=== PATIENT | female | born 1965 | race Hispanic/Latino ===

== ENCOUNTER 2022-01-27 08:41 | Emergency (ER) | payer BC ==
[2022-01-27 10:02] LABS: Basophils % (Auto) 0.5 % (0.0-1.8); Eosinophils # (Auto) 0.3 K/mm3 (0.0-0.4); Eosinophils % (Auto) 3.7 % (0.0-4.3); Lymphocytes # (Auto) 2.9 K/mm3 (1.2-5.4); Lymphocytes % (Auto) 35.6 % (13.4-35.0); Mean Corpuscular HGB Conc 32 % (30-34); Mean Corpuscular Volume 88 fl (79-97); Monocytes # (Auto) 0.7 K/mm3 (0.0-0.8); Monocytes % (Auto) 8.2 % (0.0-7.3); Platelet Count 352 K/mm3 (140-440); Red Blood Count 4.56 M/mm3 (3.65-5.03); Red Cell Distribution Width 14.3 % (13.2-15.2)
[2022-01-27 10:10] LABS: Alanine Aminotransferase 30 units/L (7-56); Albumin 3.9 g/dL (3.9-5); BUN/Creatinine Ratio 24; Blood Urea Nitrogen 19 mg/dL (7-17); Calcium 9.6 mg/dL (8.4-10.2); Hemolysis Index 7
[2022-01-27] MEDS ORDERED: KETOROLAC 30 MG/1 ML INJ IV ONE (11:15)
--- NOTE | 2022-01-27 11:17 | Emergency Department Report ---
HPI - General Chief Complaint: Chest Pain Time Seen by Provider: 01/27/22 11:03 - HPI HPI: For the last 5 hours the patient has had a left anterior chest sharp pain radiating to her left back worse with movement of her left upper extremity and touch. Patient cannot recall hurting her left chest in any way. She is a school cdl team truck driver. The pain is moderate sharp radiating to the left upper back worse with movement. She has not taken any medicines for this. She denies nausea vomiting fever chills shortness of breath diaphoresis or any other associated symptoms. She has a history of a left bundle branch block and she has had her coronaries studied and she does not have coronary artery disease. ED Past Medical Hx - Past Medical History Previous Medical History?: Yes Hx Hypertension: Yes Hx Diabetes: Yes Hx Arthritis: Yes Hx Asthma: Yes Additional medical history: FIBROMYALGIA - Surgical History Hx Cholecystectomy: Yes Additional Surgical History: Multiple Left Ankle surgeries, Back surgery. TUMOR REMOVED FROM BACK - Social History Smoking Status: Unknown if ever smoked - Medications Home Medications: Home Medications Medication Instructions Recorded Confirmed Last Taken Type Brompheniramine/Pseudoephed/Dm 10 ml PO Q8H PRN #210 ml 08/22/15 Unknown Rx [Bromfed Dm Cough Syrup] diazePAM TAB [Valium] 2 mg PO BID PRN #8 tablet 08/22/15 Unknown Rx Ibuprofen [Motrin 800 MG tab] 800 mg PO Q8HR PRN #30 tablet 08/20/16 Unknown Rx Oxycodone HCl/Acetaminophen 1 each PO Q6HR PRN #20 tablet 08/20/16 Unknown Rx [Percocet 10/325 mg] ED Review of Systems ROS: Stated complaint: CHEST PAIN Other details as noted in HPI Comment: All other systems reviewed and negative Physical Exam - Physical Exam Vital Signs: Vital Signs 01/27/22 01/27/22 08:59 09:15 Temperature 97.7 F Pulse Rate 76 Respiratory 18 Rate Blood Pressure 96/69 [Right] O2 Sat by Pulse 96 97 Oximetry Physical Exam: Physical Exam: Constitutional: AAOX3. No acute distress. No diaphoresis. HENT: Normocephalic. Pupils equal and reactive. No throat edema or erythema. Neck: No neck rigidity or tenderness. Cardiovascular: Heart sounds: No murmur. Normal rate and regular rhythm. Pulses: Intact distal pulses. Lungs: No wheezing or rales. Chest wall: There is tenderness palpation diffusely over the left anterior chest there are no rashes. Touching her left anterior chest even softly reproduces her pain. Abdominal: No distension. No mass/pulsatile mass. No abdominal tenderness, guarding nor rebound. Musculoskeletal: Normal range of motion. No edema, No calf TTP. Skin: Warm and dry. Neurological: Alert and oriented to person, place, and time. Psychiatric: Mood and affect normal. Normal cognition and memory. Normal judgement. ED Course Vital Signs 01/27/22 01/27/22 08:59 09:15 Temperature 97.7 F Pulse Rate 76 Respiratory 18 Rate Blood Pressure 96/69 [Right] O2 Sat by Pulse 96 97 Oximetry - Reevaluation(s) Reevaluation #1: 01/27/22 12:27 The patient's troponin CBC chemistries and chest x-ray were all within normal limits. She feels better after the Toradol I gave her. I offered her admission for chest pain rule out but she declined she feels that this is likely her chest wall and I agree. She verbalized understanding that I cannot fully rule out myocardial infarction but she just does not think she has it and so that is why she declined admission. ED Medical Decision Making - Lab Data Result diagrams: 01/27/22 09:36 01/27/22 09:24 Critical care attestation.: If time is entered above; I have spent that time in minutes in the direct care of this critically ill patient, excluding procedure time. ED Disposition Clinical Impression: Chest wall pain Disposition: 01 HOME / SELF CARE / HOMELESS Is pt being admited?: No Does the pt Need Aspirin: No Condition: Stable Instructions: Nonspecific Chest Pain, Adult Referrals: PRIMARY CARE, [Primary Care Provider] - 3-5 Days Time of Disposition: 12:30 Print Language: MAURITANIAN
--- NOTE | 2022-01-27 11:51 | XRay Report ---
CHEST 1 VIEW INDICATION: Chest Pain. COMPARISON: Chest x-ray from 08/22/2015 FINDINGS: SUPPORT DEVICES: None. HEART: Within normal limits. LUNGS/PLEURA: No acute air space or interstitial disease. ADDITIONAL FINDINGS: None. IMPRESSION: 1. No acute findings. Signer Name: Axel Rice MD Signed: 01/27/2022 11:42 AM Workstation Name: [id number]
[2022-01-27 12:34] VITALS: BP 99/69
--- NOTE | 2022-01-29 19:59 | Electrocardiograph Report ---
[facility] Test Date: 2022-01-27 Test Time: 09:06:45 Pat Name: MIRA MYRICK Department: Room: Gender: F News Intern: DEENA : 1965 Requested By: JOÃO WEST Order Number: [id number] Reading MD: Ishan Rodríguez Measurements Intervals [place] Rate: 70 P: -70 SC: 234 QRS: -31 QRSD: 144 T: 133 QT: 458 QTc: 494 Interpretive Statements Sinus rhythm with first-degree AV block Left bundle branch block No previous ECG available for comparison Electronically Signed On 01-29-2022 19:58:45 EDT by Ishan Rodríguez
== END 2022-01-27 12:59 | disposition home or self-care (01) ==
LOC: ED 08:41
DX: R07.9 Chest pain, unspecified (principal); Z90.49 Acquired absence of other specified parts of digestive tract; I10 Essential (primary) hypertension; E11.9 Type 2 diabetes mellitus without complications
CPT/HCPCS: 36415; 71045; 80053; 84484; 85025; 93005; 96374; 99284; J1885; 99283

== ENCOUNTER 2022-06-02 10:10 | Outpatient (CLI) | payer OTHER ==
--- NOTE | 2022-06-02 11:02 | XRay Report ---
LEFT ANKLE 2 VIEWS INDICATION: Z02.71. COMPARISON: None. IMPRESSION: There is been previous internal fixation of the distal tibia, talus and calcaneus. There is complete bony fusion at the tibiotalar joint and subtalar joint. The distal fibula has been resec lynn approximately 5-6 cm before the ankle joint. No acute osseous abnormality or bone lesion is dete cted. There are mild degenerative changes in the visualized midfoot. Please correlate with the patien t's surgical history. Signer Name: Riley Philip Jr, MD Signed: 06/02/2022 10:58 AM Workstation Name: [id number]
== END 2022-06-02 10:11 | disposition home or self-care (01) ==
LOC: XRAY 10:10
PROVIDERS: ATTEND Internal Medicine
DX: M19.072 Primary osteoarthritis, left ankle and foot (principal); M77.32 Calcaneal spur, left foot